=== PATIENT | female | born 1995 | race Caucasian/White ===

== ENCOUNTER 2020-07-29 16:22 | Emergency (ER) | payer OTHER ==
[2020-07-29 16:26] VITALS: BP 106/71; PULSE 98; TEMP 98.5; BMI 24.2
[2020-07-29 17:18] LABS: BASO % 0.2 % (0-2.0); EOS % 0.2 % (0-4.5); HEMATOCRIT 35.5 % (32.4-45.2); HEMOGLOBIN 12.1 GM/dL (10.7-15.3); LYMPH % 10.6 % (8-40); MCH 30.5 pg (25.7-33.7); MEAN CELL VOLUME 89.6 fl (80-96); MEAN PLT VOLUME 8.6 fl (7.5-11.1); MONO % 5.9 % (3.8-10.2); NEUT % 83.1 % (42.8-82.8); PLATELET COUNT 185 K/MM3 (134-434); RBC 3.97 M/mm3 (3.60-5.2); WHITE BLOOD COUNT 11.9 K/mm3 (4.0-10.0)
[2020-07-29 17:38] LABS: EPI CELLS >36 /uL (0-25.1); HYALINE CASTS 1 /uL (0-3.1); URINE APPEARANCE CLEAR; URINE BACTERIA 530 /uL (0-1359); URINE BILIRUBIN NEGATIVE (NEGATIVE); URINE COLOR YELLOW; URINE GLUCOSE (UA) NEGATIVE (NEGATIVE); URINE KETONE NEGATIVE (NEGATIVE); URINE LEUK ESTERASE TRACE (NEGATIVE); URINE NITRITE NEGATIVE (NEGATIVE); URINE PROTEIN NEGATIVE (NEGATIVE); URINE RBC 53 /uL (0-23.9); URINE UROBILINOGEN 0.2 mg/dL (0.2-1.0); URINE WBC 29 /uL (0-25.8)
[2020-07-29] MEDS ORDERED: SODIUM CHLORIDE 1,000 ML IV STA (18:19)
[2020-07-29] MEDS ORDERED: ACETAMINOPHEN 1000 MG/100 ML VIAL (NON FORMULARY) IVPB ONE (18:30)
[2020-07-29 18:49] LABS: CALCIUM 8.7 mg/dL (8.5-10.1)
[2020-07-29 18:51] LABS: BLOOD UREA NITROGEN 6.8 mg/dL (7-18)
[2020-07-29 18:53] LABS: CREATININE 0.4 mg/dL (0.55-1.3)
[2020-07-29] MEDS ORDERED: CEFTRIAXONE 1,000 MG in DEXTROSE 5%-WATER - 50 ML IVPB ONE (19:28)
[2020-07-29] MEDS ORDERED: CEFTRIAXONE 1 GM/50 ML BAG ONE (20:09)
== END 2020-07-29 20:54 | disposition home or self-care (01) ==
LOC: JER 16:22
PROC: 3E0333Z Introduction of Anti-inflammatory into Peripheral Vein, Percutaneous Approach (ICD-10-PCS; principal; 2020-07-29)
PROC: 3E03329 Introduction of Other Anti-infective into Peripheral Vein, Percutaneous Approach (ICD-10-PCS; 2020-07-29)
PROC: 3E0337Z Introduction of Electrolytic and Water Balance Substance into Peripheral Vein, Percutaneous Approach (ICD-10-PCS; 2020-07-29)
DX: N10 Acute pyelonephritis (principal)
CPT/HCPCS: 36415; 76775-TC; 76801-TC; 80048; 81003; 84702; 85025; 86850; 86900; 86901; 87086; 99285-25; J0131

== ENCOUNTER 2020-08-04 20:37 | Emergency (ER) | payer OTHER ==
[2020-08-04 20:54] VITALS: BMI 24.2
[2020-08-04 22:09] LABS: BASO % 0.2 % (0-2.0); EOS % 0.5 % (0-4.5); HEMOGLOBIN 12.4 GM/dL (10.7-15.3); LYMPH % 19.2 % (8-40); MCH 30.4 pg (25.7-33.7); MCHC 34.6 g/dl (32.0-36.0); MEAN CELL VOLUME 87.9 fl (80-96); MEAN PLT VOLUME 8.2 fl (7.5-11.1); MONO % 5.1 % (3.8-10.2); PLATELET COUNT 255 K/MM3 (134-434); RBC 4.09 M/mm3 (3.60-5.2); RDW 12.6 % (11.6-15.6); WHITE BLOOD COUNT 14.1 K/mm3 (4.0-10.0)
[2020-08-04 22:30] LABS: ALBUMIN 3.6 g/dl (3.4-5.0); BLOOD UREA NITROGEN 7.7 mg/dL (7-18); CALCIUM 9.1 mg/dL (8.5-10.1)
[2020-08-04 22:33] LABS: CREATININE 0.5 mg/dL (0.55-1.3)
[2020-08-04 22:35] LABS: BILIRUBIN,TOTAL 0.3 mg/dL (0.2-1); TOT PROT 7.2 g/dl (6.4-8.2)
[2020-08-04] MEDS ORDERED: SODIUM CHLORIDE 1,000 ML IV STA (22:54)
[2020-08-04] MEDS ORDERED: ACETAMINOPHEN 1000 MG/100 ML VIAL (NON FORMULARY) IVPB ONE (22:54)
[2020-08-04] MEDS ORDERED: ACETAMINOPHEN INJECTION 100 ML IVPB ONE (22:59)
[2020-08-04 23:10] LABS: PH,URINE 6.5 (5.0-8.0); URINE APPEARANCE CLEAR; URINE BILIRUBIN NEGATIVE (NEGATIVE); URINE COLOR YELLOW; URINE GLUCOSE (UA) NEGATIVE (NEGATIVE); URINE KETONE NEGATIVE (NEGATIVE); URINE LEUK ESTERASE NEGATIVE (NEGATIVE); URINE NITRITE NEGATIVE (NEGATIVE); URINE PROTEIN NEGATIVE (NEGATIVE); URINE UROBILINOGEN 0.2 mg/dL (0.2-1.0)
[2020-08-04 23:44] VITALS: BP 102/57; PULSE 70; TEMP 98.2
== END 2020-08-05 01:08 | disposition home or self-care (01) ==
LOC: JER 20:37
PROC: 3E033NZ Introduction of Analgesics, Hypnotics, Sedatives into Peripheral Vein, Percutaneous Approach (ICD-10-PCS; principal; 2020-08-04)
PROC: 3E0337Z Introduction of Electrolytic and Water Balance Substance into Peripheral Vein, Percutaneous Approach (ICD-10-PCS; 2020-08-04)
DX: R10.31 Right lower quadrant pain (principal); Z3A.13 13 weeks gestation of pregnancy
CPT/HCPCS: 36415; 74181-TC; 76815; 80053; 81003; 85025; 87086; 96361; 96374; 99285-25; J0131